=== PATIENT | male | born 1980 ===

== ENCOUNTER → 2022-06-28 | Outpatient (CLI) | payer OTHER ==
[~2022-06-28] VITALS: Ht 167.6 cm; Wt 71.0 kg
[2022-06-28 08:17] VITALS: BP 150/75
== END | disposition home or self-care (01) ==
LOC: SRCNTR 08:15
PROVIDERS: ATTEND Internal Medicine
DX: J45.909 Unspecified asthma, uncomplicated (principal)
CPT/HCPCS: G0463; Z7500